=== PATIENT | male | born 1940 | race Caucasian/White ===

== ENCOUNTER 2017-03-03 14:20 | Emergency (ER) | payer MEDICARE ==
[~2017-03-03] VITALS: Ht 180.3 cm; Wt 81.2 kg
[~2017-03-03 14:20] MED LIST: ALLOPURINOL300 MG PO; AMLODIPINE5 MG PO; CLONIDINE0.1 MG PO; CYCLOBENZAPR5 MG PO; FLEXERIL5 M1 PO; FLUARIX QUADRIV1 INJ IM; HYDROCHLOROT12.5 MG PO; HYDROCORTISO2.51 EX; INDOMETHACIN50 MG PO; LISINOPRIL20 MG PO; LOSARTAN POT25 MG PO; LOSARTAN POT50 MG PO; MEDDOSEPAK PO; MIRALAX3350 NF PO; NAPROSYN500 MG PO; OMEPRAZOLE20 M1 PO; TRAMADOL HCL50 MG PO; VALTREX1 GM PO; ZESTRIL30 MG PO
[2017-03-03 15:36] VITALS: BP 200/105
== END 2017-03-03 15:44 | disposition home or self-care (01) ==
LOC: ED 14:20
DX: N43.3 Hydrocele, unspecified (principal); I10 Essential (primary) hypertension; F32.9 Major depressive disorder, single episode, unspecified; M19.90 Unspecified osteoarthritis, unspecified site; N40.0 Benign prostatic hyperplasia without lower urinary tract symptoms

== ENCOUNTER 2018-06-18 15:30 | Observation (INO) | payer MEDICARE ==
[2018-06-18] VITALS (9 sets, daily range): BP systolic 126–188; BP diastolic 57–89
[~2018-06-18] VITALS: Ht 180.3 cm; Wt 73.1 kg
[2018-06-18] MEDS ORDERED: [UNRECOGNIZED DRUG - OTHER] PO (16:47)
[2018-06-18] MEDS ORDERED: ALPHA LIPOIC A200 MG PO (16:48)
[2018-06-18] MEDS ORDERED: E400400 UNIT PO (16:49)
[2018-06-18] MEDS ORDERED: LOSARTAN POT50 MG PO (16:50)
[2018-06-18] MEDS ORDERED: TYLENOL 8 HOUR650 MG PO (16:51)
[2018-06-18 17:22] LABS: HEMATOCRIT 37.5 % (39.0-50.0); IMMATURE GRANULOCYTES 0.5 % (0.0-5.0); MEAN CELL VOLUME 94.9 fL CALC (80.0-100.0); MEAN CORPUSCULAR HGB 31.1 pG CALC (26.0-32.0); MEAN CORPUSCULAR HGB CONC 32.8 g/L CALC (32.0-36.0); NEUT# 2.69 thou/uL (1.82-7.42); RED BLOOD COUNT 3.95 mill/uL (4.70-6.10); RED CELL DISTRI WIDTH 12.9 % (11.5-15.5)
[2018-06-18 17:29] LABS: HEMOGLOBIN 12.3 g/dl (14.0-18.0)
[2018-06-18 17:32] LABS: ANION GAP 14 (6-22 (CALC)); BUN 11 mg/dL (8-23); BUN/CREATININE RATIO 15 (12-20 (CALC)); CARBON DIOXIDE 27 mmol/l (22-30); CHLORIDE 107 mmol/l (95-108); CREATININE 0.8 mg/dL (0.7-1.3); GFR > 60 ML/MIN (>=60 (CALC)); GFR FOR AFR.AMER. > 60 ML/MIN (>=60 (CALC)); POTASSIUM 4.1 mmol/l (3.5-5.1); SODIUM 143 mmol/l (137-146)
[2018-06-18 18:09] LABS: URINE BILIRUBIN - DIPSTICK NEGATIVE (NEGATIVE); URINE BLOOD DIPSTICK NEGATIVE (NEGATIVE); URINE COLOR YELLOW; URINE GLUCOSE - DIPSTICK NEGATIVE (NEGATIVE); URINE KETONE NEGATIVE (NEGATIVE); URINE LEUK ESTERASE NEGATIVE (NEGATIVE); URINE NITRITE - DIPSTICK NEGATIVE (Negative); URINE PH 5.5 (4.5-8.0); URINE PROTEIN - DIPSTICK NEGATIVE (NEG-TRACE); URINE UROBILINOGEN - DIPSTICK 0.2 E.U./dL (0.2)
[2018-06-19] VITALS (9 sets, daily range): BP systolic 140–196; BP diastolic 52–94
[2018-06-19 05:07] LABS: ALBUMIN 3.6 g/dL (3.2-5.0); ALKALINE PHOSPHATASE 60 u/l (38-126); ANION GAP 10 (6-22 (CALC)); BILIRUBIN, TOTAL 0.6 mg/dL (0.0-1.4); BUN 10 mg/dL (8-23); BUN/CREATININE RATIO 14 (12-20 (CALC)); CARBON DIOXIDE 28 mmol/l (22-30); CHLORIDE 108 mmol/l (95-108); CREATININE 0.7 mg/dL (0.7-1.3); GFR > 60 ML/MIN (>=60 (CALC)); GFR FOR AFR.AMER. > 60 ML/MIN (>=60 (CALC)); POTASSIUM 3.8 mmol/l (3.5-5.1); SGOT/AST 23 u/l (19-48); SODIUM 142 mmol/l (137-146)
[2018-06-19 05:26] LABS: TOTAL PROTEIN 6.1 g/dL (6.3-8.2)
[2018-06-19] MEDS ORDERED: PRILOSEC OTC20 MG PO (12:56)
[2018-06-19] MEDS ORDERED: GAS-1 (13:00)
== END 2018-06-19 14:00 | disposition left against medical advice (07) ==
LOC: ICU 15:30
PROVIDERS: ADMIT Internal Medicine Geriatric Medicine; ATTEND Internal Medicine Geriatric Medicine
DX: I10 Essential (primary) hypertension (principal); I44.0 Atrioventricular block, first degree; R00.1 Bradycardia, unspecified; I65.23 Occlusion and stenosis of bilateral carotid arteries; I25.10 Atherosclerotic heart disease of native coronary artery without angina pectoris; F41.1 Generalized anxiety disorder; M19.90 Unspecified osteoarthritis, unspecified site

== ENCOUNTER 2022-03-16 21:58 | Emergency (ER) | payer MEDICARE ==
[~2022-03-16] VITALS: Ht 180.3 cm; Wt 163.2 kg
[~2022-03-16 21:58] MED LIST changes: +ALPHA LIPOIC A200 MG PO; +COQ10; +E400400 UNIT PO; +FISH OIL1 CAP; +GAS-1; +PRILOSEC OTC20 MG PO; +TYLENOL 8 HOUR650 MG PO; +VITAMI16 PO; +VITAMIN D PO; +[UNRECOGNIZED DRUG - OTHER] PO
[2022-03-16] MEDS ORDERED: HYDROCHLOROTHIA50 MG PO (22:11)
[2022-03-16] MEDS ORDERED: OMEPRAZOLE DR40 MG (22:12)
[2022-03-16] MEDS ORDERED: NITROFURANTN100 MG PO (22:12)
[2022-03-16 22:31] LABS: BASO% 0.6 % (0-3); HEMATOCRIT 35.2 % (39.0-50.0); HEMOGLOBIN 11.8 g/dl (14.0-18.0); IMMATURE GRANULOCYTES 0.2 % (0.0-5.0); LYMPH% 10.2 % (15-41); MEAN CELL VOLUME 92.4 fL CALC (80.0-100.0); MEAN CORPUSCULAR HGB CONC 33.5 g/dL CAL (32.0-36.0); MONO% 13.6 % (2-13); NEUT# 3.49 thou/uL (1.82-7.42); NEUT% 75.4 % (42-76); RED BLOOD COUNT 3.81 mill/uL (4.70-6.10); RED CELL DISTRI WIDTH 13.4 % (11.5-15.5)
[2022-03-16 22:44] LABS: ALBUMIN 4.1 g/dL (3.2-5.0); ALKALINE PHOSPHATASE 71 u/l (38-126); ANION GAP 9 (6-22 (CALC)); BILIRUBIN, TOTAL 0.4 mg/dL (0.0-1.4); BUN 25 mg/dL (8-23); BUN/CREATININE RATIO 22 (12-20 (CALC)); CARBON DIOXIDE 33 mmol/l (22-30); CHLORIDE 99 mmol/l (95-108); CREATININE 1.1 mg/dL (0.7-1.3); GFR FOR AFR.AMER. > 60 ML/MIN (>=60 (CALC)); GFR OTHER RACES > 60 ML/MIN (>=60 (CALC)); POTASSIUM 3.5 mmol/l (3.5-5.1); SODIUM 137 mmol/l (137-146); TOTAL PROTEIN 7.3 g/dL (6.3-8.2)
[2022-03-16 22:46] LABS: SGOT/AST 55 u/l (19-48)
[2022-03-16] MEDS ORDERED: TAM75CAP PO (23:48)
[2022-03-17 01:00] VITALS: BP 151/75
== END 2022-03-17 01:00 ==
LOC: ED 21:58
PROVIDERS: Family Medicine
DX: S39.012A Strain of muscle, fascia and tendon of lower back, initial encounter (principal); J10.1 Influenza due to other identified influenza virus with other respiratory manifestations; I10 Essential (primary) hypertension; W18.30XA Fall on same level, unspecified, initial encounter; Y92.099 Unspecified place in other non-institutional residence as the place of occurrence of the external cause

== ENCOUNTER 2022-04-05 12:28 | Emergency (ER) | payer MEDICARE ==
[2022-04-05] VITALS (11 sets, daily range): BP systolic 177–202; BP diastolic 55–157
[~2022-04-05] VITALS: Ht 180.3 cm; Wt 77.3 kg
[~2022-04-05 12:28] MED LIST changes: +HYDROCHLOROTHIA50 MG PO; +NITROFURANTN100 MG PO; +OMEPRAZOLE DR40 MG; +TAM75CAP PO
[2022-04-05] MEDS ORDERED: LOSARTAN POTASS50 MG PO (12:57)
[2022-04-05] MEDS ORDERED: ALLOPURINOL100 MG PO (12:58)
[2022-04-05] MEDS ORDERED: SUCRALFATE1 GM PO (12:58)
[2022-04-05 13:21] LABS: BASO% 0.5 % (0-3); EOS% 0.2 % (0-8); HEMATOCRIT 32.2 % (39.0-50.0); HEMOGLOBIN 10.4 g/dl (14.0-18.0); IMMATURE GRANULOCYTES 0.1 % (0.0-5.0); LYMPH% 12.9 % (15-41); MEAN CELL VOLUME 93.9 fL CALC (80.0-100.0); MEAN CORPUSCULAR HGB 30.3 pG CALC (26.0-32.0); MEAN CORPUSCULAR HGB CONC 32.3 g/dL CAL (32.0-36.0); MONO% 9.5 % (2-13); NEUT# 7.02 thou/uL (1.82-7.42); NEUT% 76.8 % (42-76); RED BLOOD COUNT 3.43 mill/uL (4.70-6.10); RED CELL DISTRI WIDTH 14.1 % (11.5-15.5)
[2022-04-05 13:47] LABS: ALBUMIN 3.7 g/dL (3.2-5.0); ANION GAP 9 (6-22 (CALC)); BUN 11 mg/dL (8-23); BUN/CREATININE RATIO 13 (12-20 (CALC)); CARBON DIOXIDE 31 mmol/l (22-30); CHLORIDE 99 mmol/l (95-108); CREATININE 0.8 mg/dL (0.7-1.3); GFR FOR AFR.AMER. > 60 ML/MIN (>=60 (CALC)); GFR OTHER RACES > 60 ML/MIN (>=60 (CALC)); POTASSIUM 3.5 mmol/l (3.5-5.1); SGOT/AST 32 u/l (19-48); SODIUM 135 mmol/l (137-146); TOTAL PROTEIN 7.1 g/dL (6.3-8.2)
[2022-04-05 13:48] LABS: ALKALINE PHOSPHATASE 122 u/l (38-126); BILIRUBIN, TOTAL 0.9 mg/dL (0.0-1.4)
[2022-04-05 14:36] LABS: URINE BILIRUBIN - DIPSTICK NEGATIVE (NEGATIVE); URINE BLOOD DIPSTICK NEGATIVE (NEGATIVE); URINE COLOR YELLOW; URINE GLUCOSE - DIPSTICK NEGATIVE (NEGATIVE); URINE KETONE NEGATIVE (NEGATIVE); URINE LEUK ESTERASE NEGATIVE (NEGATIVE); URINE PH 7.5 (4.5-8.0); URINE PROTEIN - DIPSTICK NEGATIVE (NEG-TRACE); URINE SPECIFIC GRAVITY 1.015; URINE UROBILINOGEN - DIPSTICK 0.2 E.U./dL (0.2)
[2022-04-05 14:38] LABS: URINE NITRITE - DIPSTICK NEGATIVE (Negative)
== END 2022-04-05 16:56 | disposition short-term general hospital (02) ==
LOC: ED 12:28
PROVIDERS: Family Medicine
DX: S06.5XAA Traumatic subdural hemorrhage with loss of consciousness status unknown, initial encounter (principal); M79.601 Pain in right arm; I10 Essential (primary) hypertension; K21.9 Gastro-esophageal reflux disease without esophagitis; W19.XXXA Unspecified fall, initial encounter; Y92.129 Unspecified place in nursing home as the place of occurrence of the external cause; Z20.822 Contact with and (suspected) exposure to COVID-19
CPT/HCPCS: J1953